=== PATIENT | male | born 1995 | race American Indian/Alaskan Native ===

== ENCOUNTER 2019-04-16 11:20 | Emergency (ER) | payer OTHER ==
--- NOTE | 2019-04-16 12:13 | EDM.PDOC ---
ED HPI GENERAL MEDICAL PROBLEM - General Chief Complaint: Upper Extremity Injury/Pain Stated Complaint: POSSIBLE BROKEN KNUCKLE Time Seen by Provider: 04/16/19 11:45 - History of Present Illness INITIAL COMMENTS - FREE TEXT/NARRATIVE: Jaden is a 23-year-old man who hurt his right hand last night while punching an object. He states that it did not hurt all that much at first, but has swelled throughout the night. He is able to bend his fingers today. No previous history of injury to his hand Right Hand Pain Score (Numeric/FACES): 4 - Related Data Allergies Allergy/AdvReac Type Severity Reaction Status Date / Time No Known Allergies Allergy Verified 04/16/19 11:28 Home Meds: Home Meds . [No Known Home Meds] 03/01/18 [History] Past Medical History - Past Health History Medical/Surgical History: Denies Medical/Surgical History Social & Family History - Family History Family Medical History: Noncontributory - Tobacco Use Smoking Status *Q: Never Smoker Second Hand Smoke Exposure: No - Caffeine Use Caffeine Use: Reports: None - Recreational Drug Use Recreational Drug Use: No Review of Systems - Review of Systems Review Of Systems: Comprehensive ROS is negative, except as noted in HPI. ED EXAM, GENERAL - Physical Exam Exam: See Below Free Text/Narrative:: General: Jaden is a 23-year-old man in no acute distress Right hand: He does have significant swelling over the metacarpal phalangeal joints of the second third fourth and fifth fingers. There is a little bit of ecchymosis present. Three-view x-ray of the hand does not show any acute fracture or dislocation. Course - Vital Signs Last Recorded V/S: Last Vital Signs Temp 36.5 C 04/16/19 11:23 Pulse 91 04/16/19 11:23 Resp 18 04/16/19 11:23 BP 146/103 H 04/16/19 11:23 Pulse Ox 98 04/16/19 11:23 Departure - Departure Time of Disposition: 12:20 Disposition: Home, Self-Care 01 Clinical Impression: Contusion of hand Qualifiers: Encounter type: initial encounter Laterality: right Qualified Code(s): S60.221A - Contusion of right hand, initial encounter - Discharge Information *PRESCRIPTION DRUG MONITORING PROGRAM REVIEWED*: Not Applicable *COPY OF PRESCRIPTION DRUG MONITORING REPORT IN PATIENT MICHA: Not Applicable Instructions: Contusion, [id number] Forms: ED Department Discharge Additional Instructions: Ice as often as you can over the next couple of days, follow up with a primary physician if not improving Sepsis Event Note - Evaluation Sepsis Screening Result: No Definite Risk - Focused Exam Vital Signs: Vital Signs Temp Pulse Resp BP Pulse Ox 04/16/19 11:23 36.5 C 91 18 146/103 H 98 Date Exam was Performed: 04/16/19 Time Exam was Performed: 16:11 - Problem List & Annotations (1) Contusion of hand SNOMED Code(s): 6443979 Code(s): S60.229A - CONTUSION OF UNSPECIFIED HAND, INITIAL ENCOUNTER Status : Acute Qualifiers: Encounter type: initial encounter Laterality: right Qualified Code(s): S60.221A - Contusion of right hand, initial encounter - Problem List Review Problem List Initiated/Reviewed/Updated: Yes - Assessment/Plan Plan: Plan: 1. I advised him to use rest, ice, and elevation to help with pain and swelling in his hand. If he continues to have pain over the next several days, he will follow-up with his primary care provider.
== END 2019-04-16 12:18 | disposition home or self-care (01) ==
LOC: DL.ED 11:20
DX: S60.221A Contusion of right hand, initial encounter (principal); W22.09XA Striking against other stationary object, initial encounter; Y93.89 Activity, other specified
CPT/HCPCS: 73130-RT; 99283-25